=== PATIENT | male | born 1985 | race Caucasian/White ===

== ENCOUNTER 2017-09-28 23:46 | Emergency (ER) | payer BC ==
[~2017-09-28] VITALS: Ht 180.3 cm; Wt 106.6 kg
[~2017-09-28 23:46] MED LIST: CELEXA20 MG PO; NORCO 5-325 TA1 EACH PO
[2017-09-29] MEDS ORDERED: TIVICAY50 MG PO (01:59)
[2017-09-29] MEDS ORDERED: TRUVADA 200 MG1 EACH PO (01:59)
[2017-09-29 02:26] VITALS: BP 159/97
[2017-10-01 21:08] LABS: HIV ANTIBODY Negative (Non Reactive)
== END 2017-09-29 02:27 | disposition home or self-care (01) ==
LOC: ER 23:46
PROVIDERS: Emergency Medicine
DX: Z71.7 Human immunodeficiency virus [HIV] counseling (principal); J45.909 Unspecified asthma, uncomplicated; Z90.49 Acquired absence of other specified parts of digestive tract